=== PATIENT | male | born 1960 | race Caucasian/White ===

== ENCOUNTER 2020-10-01 05:33 | Emergency (ER) | payer OTHER ==
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
--- NOTE | 2020-10-01 09:06 | CR ---
PROCEDURE INFORMATION: Exam: XR Right Wrist Exam date and time: 10/01/2020 6:02 AM Age: 59 years old Clinical indication: Wrist; Right; Patient HX: Injury, pain TECHNIQUE: Imaging protocol: XR Right wrist. Views: 3 or more views. COMPARISON: No relevant prior studies available. FINDINGS: Bones/joints: No acute fracture or dislocation is identified. The radiocarpal compartment is mildly narrowed. There is mild osteophyte formation about it and the 1st carpometacarpal joint. Chondrocalcinosis appears to be present. Mild cystic change at the base of the ulnar styloid could be degenerative. Soft tissues: There is mild generalized soft tissue swelling. Vasculature: Atherosclerotic vascular calcifications are noted. IMPRESSION: 1. Mild generalized soft tissue swelling without acute fracture or dislocation identified. May consider follow-up in 7 to 10 days or correlation with MRI if symptoms persist. 2. Degenerative changes as described. 3. Chondrocalcinosis, raising the possibility of calcium pyrophosphate dihydrate crystal deposition disease. Thank you for allowing us to participate in the care of your patient. Dictated and Authenticated by: Breezy Stauffer MD 10/01/2020 7:33 AM Central Time ([place] & [place]) MARCUS
== END 2020-10-01 07:35 | disposition home or self-care (01) ==
LOC: JD.ED 05:33
DX: S69.91XA Unspecified injury of right wrist, hand and finger(s), initial encounter (principal); F17.210 Nicotine dependence, cigarettes, uncomplicated; Z88.1 Allergy status to other antibiotic agents; W20.8XXA Other cause of strike by thrown, projected or falling object, initial encounter
CPT/HCPCS: 29105; 73110-26-RT; 73110-RT; 99282; 99283-25

== ENCOUNTER 2020-10-03 02:11 | Emergency (ER) | payer MEDICARE, OTHER ==
[2020-10-03] MEDS ORDERED: HYDROmorphone 1 MG/ML Syringe IVPUSH ONE (02:43)
[2020-10-03] MEDS ORDERED: Ondansetron 4 MG/2 ML SDV IVPUSH ONE ×2 (02:43→05:44)
[2020-10-03] MEDS ORDERED: Sodium Chloride 0.9% 1,000 ML IV SCH ×2 (02:45→05:45)
--- NOTE | 2020-10-03 02:50 | EDM.PDOC ---
ED HPI GENERAL MEDICAL PROBLEM - General Chief Complaint: Abdominal Pain Stated Complaint: RT SIDE FLANK PAIN Time Seen by Provider: 10/03/20 02:24 Source of Information: Reports: Patient History Limitations: Reports: No Limitations - History of Present Illness INITIAL COMMENTS - FREE TEXT/NARRATIVE: This is a 59-year-old male. Onset of right lower quadrant pain suddenly about 4 hours ago. He states he is not able to walk secondary to the pain. Any sort of jarring or in the car driving to the ER caused pain. It does not seem to come from the flank down to the right lower quadrant but is in the right lower quadrant to start with. He has no history of kidney stones in the past and he still has his appendix. He has not noted any fever or chills over the last couple of days or today. He has not had any previous sharp pain in that right lower quadrant over the last couple of days either. He is not able to lay down in bed because he cannot lift his feet up secondary to the pain. He does have a history of venous stasis and is in [place] boots of both of his lower extremities. He does state that he had MRSA back in 2018 in his lower legs as well but not since that time. Is noted to have a Ortho-Glass splint on his right upper extremity wrist. Right Lower Abdomen Pain Score (Numeric/FACES): 8 - Related Data Allergies Allergy/AdvReac Type Severity Reaction Status Date / Time amoxicillin Allergy Vomiting Verified 10/03/20 02:20 Home Meds: Home Meds Furosemide [Lasix] 80 mg PO DAILY 10/03/20 [History] Past Medical History Respiratory History: Reports: Sleep Apnea Musculoskeletal History: Reports: Fracture, Other (See Below) Other Musculoskeletal History: left knee fx ( tib fib fx) Dermatologic History: Reports: Cellulitis, Chronic Cellulitis - Infectious Disease History Infectious Disease History: Reports: MRSA - Past Surgical History Cardiovascular Surgical History: Reports: Other (See Below) Other Cardiovascular Surgeries/Procedures: venous insufficiency to right lower leg Musculoskeletal Surgical History: Reports: ORIF Social & Family History - Tobacco Use Tobacco Use Status *Q: Unknown Ever Used Tobacco - Caffeine Use Caffeine Use: Reports: Coffee ED ROS GENERAL - Review of Systems Review Of Systems: See Below Constitutional: Denies: Fever, Chills HEENT: Reports: No Symptoms Respiratory: Denies: Shortness of Breath, Cough Cardiovascular: Reports: No Symptoms Endocrine: Reports: No Symptoms GI/Abdominal: Reports: Abdominal Pain, Nausea. Denies: Diarrhea, Vomiting : Denies: Dysuria, Flank Pain Musculoskeletal: Reports: No Symptoms Skin: Reports: No Symptoms Neurological: Reports: No Symptoms Psychiatric: Reports: No Symptoms Hematologic/Lymphatic: Reports: No Symptoms ED EXAM, GI/ABD - Physical Exam Exam: See Below Exam Limited By: No Limitations General Appearance: Alert, WD/WN, No Apparent Distress Eyes: Bilateral: Normal Appearance Ears: Normal External Exam Nose: Normal Inspection Throat/Mouth: Normal Lips, Normal Voice, No Airway Compromise Head: Normocephalic Neck: Supple Respiratory/Chest: No Respiratory Distress, Lungs Clear, Normal Breath Sounds Cardiovascular: Regular Rate, Rhythm, No Murmur GI/Abdominal Exam: Other (He has a difficult time standing up straight secondary to the pain, he will not lie down in the bed because he cannot lift his legs due to the pain, when I palpate his lower abdomen there is guarding noted and some mild peritoneal symptoms on palpation. He does not tolerate palpation on the right lower quadrant at all. In the left lower quadrant I am able to palpate slightly but it causes pain in the right lower quadrant the upper abdomen does not seem to be tender, bowel sounds are quiet.) Back Exam: Normal Inspection, Full Range of Motion Extremities: Normal Range of Motion, Other (He has an orthoglass splint with an Noel wrap on his right wrist.) Neurological: Alert, Oriented Psychiatric: Anxious Skin Exam: Warm, Dry Course - Vital Signs Last Recorded V/S: Last Vital Signs Temp 98.0 F 10/03/20 02:22 Pulse 106 H 10/03/20 02:22 Resp 19 10/03/20 02:22 BP 128/73 10/03/20 02:22 Pulse Ox 98 10/03/20 02:22 - Orders/Labs/Meds Orders: Active Orders 24 hr Category Date Time Status Abdomen Pelvis wo Cont [CT] Stat Exams 10/03/20 02:44 Taken Labs: Laboratory Tests 10/03/20 10/03/20 10/03/20 Range/Units 02:54 02:54 03:50 WBC 15.13 H (4.23-9.07) K/mm3 RBC 4.75 (4.63-6.08) M/mm3 Hgb 14.1 (13.7-17.5) gm/dl Hct 43.7 (40.1-51.0) % MCV 92.0 (79.0-92.2) fl MCH 29.7 (25.7-32.2) pg MCHC 32.3 (32.2-35.5) g/dl RDW Std Deviation 44.7 H (35.1-43.9) fL Plt Count 362 H (163-337) K/mm3 MPV 8.8 L (9.4-12.3) fl Neut % (Auto) 83.6 H (34.0-67.9) % Lymph % (Auto) 6.5 L (21.8-53.1) % [place] % (Auto) 8.9 (5.3-12.2) % Eos % (Auto) 0.3 L (0.8-7.0) Baso % (Auto) 0.4 (0.1-1.2) % Neut # (Auto) 12.65 H (1.78-5.38) K/mm3 Lymph # (Auto) 0.98 L (1.32-3.57) K/mm3 [place] # (Auto) 1.35 H (0.30-0.82) K/mm3 Eos # (Auto) 0.05 (0.04-0.54) K/mm3 Baso # (Auto) 0.06 (0.01-0.08) K/mm3 Manual Slide Review Abnormal smear Sodium 137 (136-145) mEq/L Potassium 3.8 (3.5-5.1) mEq/L Chloride 100 (98-107) mEq/L Carbon Dioxide 26 (21-32) mEq/L Anion Gap 14.8 (5-15) BUN 12 (7-18) mg/dL Creatinine 1.1 (0.7-1.3) mg/dL Est Cr Clr Drug Dosing 81.72 mL/min Estimated GFR (MDRD) > 60 (>60) mL/min BUN/Creatinine Ratio 10.9 L (14-18) Glucose 122 H (74-106) mg/dL Calcium 9.1 (8.5-10.1) mg/dL Total Bilirubin 0.8 (0.2-1.0) mg/dL AST 12 L (15-37) U/L ALT 15 L (16-63) U/L Alkaline Phosphatase 107 (46-116) U/L C-Reactive Protein 15.5 H* (<1.0) mg/dL Total Protein 7.8 (6.4-8.2) g/dl Albumin 3.4 (3.4-5.0) g/dl Globulin 4.4 gm/dL Albumin/Globulin Ratio 0.8 L (1-2) SARS-CoV-2 RNA (SARA) Negative (NEGATIVE) Meds: Medications Discontinued Medications Generic Name Dose Route Start Last Admin Trade Name Freq PRN Reason Stop Dose Admin Hydromorphone HCl 1 mg 10/03/20 02:43 10/03/20 02:53 Dilaudid IVPUSH 10/03/20 02:44 1 mg ONETIME ONE Administration Hydromorphone HCl 0.5 mg 10/03/20 05:03 10/03/20 05:07 Dilaudid IVPUSH 10/03/20 05:04 0.5 mg ONETIME ONE Administration Sodium Chloride 1,000 mls @ 500 mls/hr 10/03/20 02:45 10/03/20 02:53 Normal Saline IV 500 mls/hr ASDIRECTED KORI Administration Meropenem 1 gm/ Sodium 100 mls @ 200 mls/hr 10/03/20 05:41 10/03/20 05:56 Chloride IV 10/03/20 06:10 200 mls/hr ONETIME ONE Administration Sodium Chloride 1,000 mls @ 200 mls/hr 10/03/20 05:45 10/03/20 05:56 Normal Saline IV 200 mls/hr ASDIRECTED KORI Administration Ondansetron HCl 4 mg 10/03/20 02:43 10/03/20 02:52 Zofran IVPUSH 10/03/20 02:44 4 mg ONETIME ONE Administration Ondansetron HCl 4 mg 10/03/20 05:44 10/03/20 05:56 Zofran IVPUSH 10/03/20 05:45 4 mg ONETIME ONE Administration - Radiology Interpretation Free Text/Narrative:: CT scan shows an acute appendicitis without evidence of perforation or abscess and there is no appendicolith noted. - Re-Assessments/Exams Free Text/Narrative Re-Assessment/Exam: 10/03/20 03:50 Spoke to the patient regarding his lab results and white count of 15,[address] scan showing acute appendicitis. I did speak to the surgeon net solutions architect but we have no beds in the hospital so he will need to be transferred elsewhere. We will do a Covid test on him as long as it is negative I will attempt to get him transferred down to [place]. 10/03/20 05:51 I spoke to the patient about going to [facility] in [place]. He will be seeing Dr. Prince. When I spoke to the patient regarding his allergies he did indicate he has an allergy to amoxicillin and it apparently was sometime ago and he had some vomiting. So I will not give him Zosyn but I will try to give him some Meropenem the realization that a very small percentage of people have a reaction to it when they have allergies to penicillin. 10/03/20 06:46 Patient has been resting comfortably with the medications. The ambulance crew has arrived and there taking him down to [facility] in [place] for further evaluation and treatment by Dr. Prince. Departure - Departure Time of Disposition: 05:53 Disposition: DC/Tfer to [facility] 02 Condition: Fair Clinical Impression: Acute appendicitis Qualifiers: Acute appendicitis type: with localized peritonitis Appendicitis gangrene presence: without gangrene Appendicitis perforation presence: without perforation Appendicitis abscess presence: without abscess Qualified Code(s): K35.30 - Acute appendicitis with localized peritonitis, without perforation or gangrene Venous insufficiency of lower extremity Qualifiers: Laterality: bilateral Qualified Code(s): I87.2 - Venous insufficiency (chronic) (peripheral) Sprain of wrist, right Qualifiers: Encounter type: initial encounter Qualified Code(s): S63.501A - Unspecified sprain of right wrist, initial encounter - Discharge Information Sepsis Event Note (ED) - Evaluation Sepsis Screening Result: No Definite Risk - Focused Exam Vital Signs: Vital Signs Temp Pulse Resp BP Pulse Ox 10/03/20 02:22 98.0 F 106 H 19 128/73 98 ED Communication - ED Communication Date/Time Date: 10/03/20 Time Called: 05:50 - Discussed Case With (1) Discussed Case With (1): Admitting Provider Person/s Notified (1): Dr. Prince (Agrees to accept the patient in transport for further evaluation and treatment) - My Orders Last 24 Hours: My Active Orders 10/03/20 02:44 Abdomen Pelvis wo Cont [CT] Stat - Assessment/Plan Last 24 Hours: My Active Orders 10/03/20 02:44 Abdomen Pelvis wo Cont [CT] Stat
[2020-10-03] MEDS ORDERED: HYDROmorphone 0.5 MG/0.5 ML Syringe IVPUSH ONE (05:03)
[2020-10-03] MEDS ORDERED: Meropenem 1 GM in Sodium Chloride 0.9% 100 ML IV ONE (05:41)
--- NOTE | 2020-10-04 09:50 | CT ---
Addendum created by Farzad Godinez MD on 10/03/2020 4:42 AM Central Time ([place] & [place]): Results of this exam were communicated by phone to Ovi Domingo at112/03/2019 3:03 AM with the recieving practioner acknowleging understanding of exam results. Initial Report created on 10/03/2020 4:40 AM Central Time ([place] & [place]): PROCEDURE INFORMATION: Exam: CT Abdomen And Pelvis Without Contrast Exam date and time: 10/03/2020 3:03 AM Age: 59 years old Clinical indication: Abdominal pain; Generalized; Patient HX: RLQ pain with guarding TECHNIQUE: Imaging protocol: Computed tomography of the abdomen and pelvis without contrast. COMPARISON: No relevant prior studies available. FINDINGS: Liver: Normal. No mass. Gallbladder and bile ducts: Normal. No calcified stones. No ductal dilation. Pancreas: Normal. No ductal dilation. Spleen: Normal. No splenomegaly. Adrenal glands: Normal. No mass. Kidneys and ureters: Normal. No hydronephrosis. Stomach and bowel: Unremarkable. No obstruction. No mucosal thickening. Appendix: The appendix demonstrates diffuse distention, measuring up to 12 mm, consistent with mild or early acute appendicitis. There is mild periappendiceal inflammatory change. Intraperitoneal space: Unremarkable. No free air. No significant fluid collection. Vasculature: Unremarkable. No abdominal aortic aneurysm. Lymph nodes: Unremarkable. No enlarged lymph nodes. Urinary bladder: Unremarkable as visualized. Reproductive: Unremarkable as visualized. Bones/joints: Unremarkable. No acute fracture. Soft tissues: Unremarkable. IMPRESSION: 1. Acute appendicitis without evidence of appendiceal perforation or abscess. 2. No evidence for appendicoliths is identified. Thank you for allowing us to participate in the care of your patient. Dictated and Authenticated by: Farzad Godinez MD 10/03/2020 4:40 AM Central Time ([place] & [place]) MARCUS
== END 2020-10-03 06:30 ==
LOC: JD.ED 02:11
DX: K35.30 Acute appendicitis with localized peritonitis, without perforation or gangrene (principal); I87.2 Venous insufficiency (chronic) (peripheral); S63.501A Unspecified sprain of right wrist, initial encounter; Z20.828 Contact with and (suspected) exposure to other viral communicable diseases; Z88.1 Allergy status to other antibiotic agents; Z79.899 Other long term (current) drug therapy; X58.XXXA Exposure to other specified factors, initial encounter
CPT/HCPCS: 36415; 74176; 80053; 85025; 86140; 96365; 96375; 96376; 99285; J1170; J2185; J2405; J7030; U0002